=== PATIENT | female | born 1960 | race Caucasian/White ===

== ENCOUNTER → 2016-11-02 | Outpatient (CLI) | payer BC | LOC: WOUNDCARE 09:57 | PROVIDERS: ATTEND Nurse Practitioner | DX: E11.621 Type 2 diabetes mellitus with foot ulcer (principal); L97.512 Non-pressure chronic ulcer of other part of right foot with fat layer exposed | CPT/HCPCS: 11042 ==

== ENCOUNTER → 2016-11-09 | Outpatient (CLI) | payer BC | LOC: WOUNDCARE 09:22 | PROVIDERS: ATTEND Nurse Practitioner | DX: E11.621 Type 2 diabetes mellitus with foot ulcer (principal); L97.511 Non-pressure chronic ulcer of other part of right foot limited to breakdown of skin | CPT/HCPCS: 97597 ==

== ENCOUNTER → 2016-11-16 | Outpatient (CLI) | payer BC | LOC: WOUNDCARE 09:27 | PROVIDERS: ATTEND Nurse Practitioner | DX: E11.621 Type 2 diabetes mellitus with foot ulcer (principal); L97.511 Non-pressure chronic ulcer of other part of right foot limited to breakdown of skin | CPT/HCPCS: 99212 ==

== ENCOUNTER → 2021-11-19 | Outpatient (CLI) | payer OTHER ==
--- NOTE | 2021-11-19 14:45 | Diagnostic Imaging Report ---
INDICATION: Right wrist pain, injury one month ago. TIME OF EXAM: 09:07 a.m. COMPARISON: No prior studies are available for comparison. TECHNIQUE: Four views of the right wrist were obtained. FINDINGS: Distal radius and ulna appear to be intact. Carpus is intact. Metacarpals are unremarkable. No fractures are seen. IMPRESSION: No acute bony abnormality is detected. Dictated by: Dictated on workstation # [id number]
== END ==
LOC: RAD FS 08:57
PROVIDERS: ATTEND Nurse Practitioner
DX: S69.91XA Unspecified injury of right wrist, hand and finger(s), initial encounter (principal); X58.XXXA Exposure to other specified factors, initial encounter
CPT/HCPCS: 73110

== ENCOUNTER → 2021-12-09 | Outpatient (CLI) | payer OTHER ==
--- NOTE | 2021-12-09 15:03 | Diagnostic Imaging Report ---
INDICATION: Follow-up fracture. COMPARISON: 11/19/2021. FINDINGS: Multiple radiographic views of the right wrist were obtained. Since the previous exam, there has been interval progression of linear band of sclerosis extending across the distal radius near the metadiaphyseal junction. This may be on the basis of healing occult fracture. No other acute osseous abnormality is seen. Joint spaces are maintained. No unexpected radiopaque foreign bodies are identified. IMPRESSION: 1. Probable healing fracture of the distal radius. Continued follow-up is advised. Dictated by: Dictated on workstation # [id number]
== END ==
LOC: RAD FS 14:31
PROVIDERS: ATTEND Nurse Practitioner
DX: S52.591A Other fractures of lower end of right radius, initial encounter for closed fracture (principal); X58.XXXA Exposure to other specified factors, initial encounter
CPT/HCPCS: 73110